=== PATIENT | female | born 1960 | race Caucasian/White ===

== ENCOUNTER 2021-10-16 23:15 | Emergency (ER) | payer OTHER ==
[2021-10-17 01:58] LABS: ALBUMIN 4.1 g/dL (3.4-5.0); BILIRUBIN - TOTAL 0.5 mg/dL (0.2-1.0); BUN/CREAT RATIO (CALC) 21.1 RATIO; CREATININE 0.9 mg/dL (0.51-0.95); GLOBULIN (CALCULATION) 3.1 g/dL; POTASSIUM 4.5 mmol/L (3.5-5.1); TOTAL PROTEIN 7.2 g/dL (6.4-8.2)
[2021-10-17 02:01] LABS: BASOPHIL 0.6 % (0-2); EOSINOPHIL 3.4 % (0-5); HCT 43.9 % (37.0-47.0); HGB 14.2 g/dl (12.5-16.0); LYMPHOCYTE 36.7 % (15-48); MCH 32.2 pg (25.0-31.0); MCHC 32.3 g/dL (32.0-36.0); MCV 99.5 fL (78.0-100.0); MONOCYTE 5.6 % (0-12); MPV 10.8 fL (6.0-9.5); NEUTROPHIL 53.4 % (41-80); NRBC 0; PLT 195 K/uL (150-400); RBC 4.41 M/uL (4.20-5.40); RDW 12.9 % (11.5-14.0); WBC 7.9 K/uL (4.0-10.5)
[2021-10-17 09:07] LABS: BASOPHIL 0.7 % (0-2); EOSINOPHIL 3.6 % (0-5); HCT 43.6 % (37.0-47.0); HGB 14.3 g/dl (12.5-16.0); MCHC 32.8 g/dL (32.0-36.0); MCV 97.5 fL (78.0-100.0); MONOCYTE 5.7 % (0-12); MPV 10.7 fL (6.0-9.5); NRBC 0; PLT 198 K/uL (150-400); RBC 4.47 M/uL (4.20-5.40); WBC 7.4 K/uL (4.0-10.5)
[2021-10-17 09:08] LABS: LYMPHOCYTE 41.6 % (15-48)
[2021-10-17 09:22] LABS: BUN/CREAT RATIO (CALC) 22.1 RATIO; CREATININE 0.77 mg/dL (0.51-0.95); POTASSIUM 4.1 mmol/L (3.5-5.1)
== END 2021-10-17 16:00 | disposition other institution (70) ==
LOC: FER 23:15
PROVIDERS: Emergency Medicine
DX: I21.4 Non-ST elevation (NSTEMI) myocardial infarction (principal); I20.8 Other forms of angina pectoris; F17.200 Nicotine dependence, unspecified, uncomplicated; Z20.822 Contact with and (suspected) exposure to COVID-19
CPT/HCPCS: 36415; 71045; 71275; 80048; 80053; 83880; 84484; 85025; 85730; 93005; J1644; J7030; U0002

== ENCOUNTER 2022-01-20 01:47 | Emergency (ER) | payer OTHER ==
[2022-01-20 02:13] LABS: BASOPHIL 0.6 % (0-2); EOSINOPHIL 3.8 % (0-5); HCT 41.9 % (37.0-47.0); HGB 13.6 g/dl (12.5-16.0); LYMPHOCYTE 25.8 % (15-48); MCH 31.9 pg (25.0-31.0); MCHC 32.5 g/dL (32.0-36.0); MCV 98.4 fL (78.0-100.0); MONOCYTE 9.2 % (0-12); MPV 11.2 fL (6.0-9.5); NEUTROPHIL 60.2 % (41-80); NRBC 0; PLT 197 K/uL (150-400); RBC 4.26 M/uL (4.20-5.40); RDW 13.3 % (11.5-14.0); WBC 8.1 K/uL (4.0-10.5)
[2022-01-20 02:41] LABS: ALBUMIN 4.1 g/dL (3.4-5.0); BILIRUBIN - TOTAL 0.9 mg/dL (0.2-1.0); BUN/CREAT RATIO (CALC) 17.5 RATIO; CREATININE 1.03 mg/dL (0.51-0.95); GLOBULIN (CALCULATION) 3.1 g/dL; POTASSIUM 3.6 mmol/L (3.5-5.1); TOTAL PROTEIN 7.2 g/dL (6.4-8.2)
== END 2022-01-20 19:00 | disposition other institution (70) ==
LOC: FER 01:47
PROVIDERS: Emergency Medicine
DX: R07.9 Chest pain, unspecified (principal); R74.8 Abnormal levels of other serum enzymes; I10 Essential (primary) hypertension; F17.200 Nicotine dependence, unspecified, uncomplicated; Z79.82 Long term (current) use of aspirin; Z28.311 Partially vaccinated for COVID-19
CPT/HCPCS: 36415; 71275; 80053; 83735; 83880; 84484; 85025; 85379; 93005; Q9967